=== PATIENT | female | born 1965 | race Two or more races ===

== ENCOUNTER 2024-01-22 07:15 | Inpatient (IN) | payer OTHER ==
[~2024-01-22] VITALS: Ht 175.3 cm; Wt 133.8 kg
[2024-01-22] MEDS ORDERED: SYNTHROID112 MCG (07:46)
[2024-01-22] MEDS ORDERED: LOSARTAN (07:47)
[2024-01-22] MEDS ORDERED: NIFEDIPINE 30 MG (07:48)
[2024-01-22] MEDS ORDERED: ROSUVASTATIN CA10 MG (07:48)
[2024-01-22 08:20] LABS: HEMATOCRIT 39.4 % (36.0-45.00); HEMOGLOBIN 13.4 g/dL (12.0-15.00); MEAN CELL VOLUME 88.4 fL (80.00-100.00); MEAN CORPUSCULAR HEMOGLOBIN 30.1 pg (27.00-32.0); MEAN CORPUSCULAR HGB CONC 34.1 g/dl (32.0-36.0); PLATELET COUNT 314 K/uL (150-450); RED BLOOD COUNT 4.46 M/uL (4.00-6.00); RED CELL DISTRIBUTION WIDTH 13.9 % (11.5-14.5)
[2024-01-22 08:24] LABS: PH,URINE 5.5 (5.0-8.0); URINE APPEARANCE Cloudy; URINE BILIRRUBIN Negative (NEGATIVE); URINE BLOOD Small; URINE COLOR Yellow; URINE GLUCOSE Negative (NEGATIVE); URINE KETONE Trace (NEGATIVE); URINE LEUKOCYTE Trace; URINE NITRATE Negative; URINE PROTEIN Negative (NEGATIVE); URINE UROBILINOGEN 0.2 E.U./dl
[2024-01-22 08:29] LABS: URINE CAST 3.81 uL (0.0-1.40); URINE EPITHELIAL CELLS 197.5 uL (0.0-38.8); URINE RBC 172.2 uL (0.0-20.8)
[2024-01-22 08:37] LABS: PROTHROMBIN TIME 10.9 SECONDS (9.0-11.5)
[2024-01-22 09:06] LABS: URINE BACTERIA > 9821.5 uL (0.0-1933)
[2024-01-22 09:12] LABS: ALBUMIN 4.1 gm/dL (3.4-5.0); BILIRUBIN TOTAL 0.68 mg/dL (0.3-1.2); CALCIUM 9.3 mg/dL (8.5-10.1); CREATININE SERUM 0.8 mg/dL (0.55-1.02); GFR 73.67; GLOBULINA 3.7 G/DL (2.4-3.5); POTASSIUM 3.85 mEq/L (3.5-5.1); TOTAL PROTEIN 7.8 gm/dL (6.4-8.2)
[2024-01-24] MEDS ORDERED: ONDANSETRON HCL 2 MG/ML VIAL IV PRN (11:15)
[2024-01-24] MEDS ORDERED: ENALAPRILAT DIHYDRATE 1.25 MG/ML VIAL IV PRN (11:15)
[2024-01-24] MEDS ORDERED: ACETAMINOPHEN 500 MG GEL..CAP PO SCH (11:17)
[2024-01-24] MEDS ORDERED: CEFAZOLIN SODIUM 1,000 MG VIAL IV ONE (13:15)
[2024-01-24] MEDS ORDERED: DEXAMETHASONE SODIUM PHOSPHATE 4 MG/ML VIAL IV ONE (13:15)
[2024-01-24] MEDS ORDERED: LOSARTAN-HCTZ1 EAC2 (13:33)
[2024-01-24] MEDS ORDERED: LOSARTAN POTAS100 MG (13:33)
[2024-01-24] MEDS ORDERED: FAMOTIDINE40 MG (13:33)
[2024-01-24] MEDS ORDERED: VITAMIN D31250 MCG (13:33)
[2024-01-24] MEDS ORDERED: NIFEDIPINE ER30 M1 (13:33)
[2024-01-24] MEDS ORDERED: TRAMADOL HCL 50 MG TABLET PO SCH (17:00)
[2024-01-24] MEDS ORDERED: CYCLOBENZAPRINE HCL 5 MG TABLET PO SCH (17:00)
[2024-01-24 19:30] VITALS: BP 153/84; O2SAT 95
[2024-01-24] MEDS ORDERED: Calcium Carbonate 1 TAB TABLET PO SCH (21:00)
[2024-01-24] MEDS ORDERED: PANTOPRAZOLE SODIUM 40 MG/VIAL VIAL IV PUSH SCH (21:00)
[2024-01-24 23:35] VITALS: BP 156/75; O2SAT 96
[2024-01-25] MEDS ORDERED: LEVOTHYROXINE SODIUM 175 MCG TABLET PO SCH (06:00)
[2024-01-25 08:24] VITALS: BP 180/80; O2SAT 98
== END 2024-01-25 10:48 | disposition home or self-care (01) | DRG 627 ==
LOC: SURG 01-24 07:15 → O/R 01-24 08:40 → SURG 01-24 12:00 → SURH 01-24 16:09
PROVIDERS: ADMIT Surgery; ATTEND Surgery
PROC: 0GTG0ZZ Resection of Left Thyroid Gland Lobe, Open Approach (ICD-10-PCS; principal; 2024-01-24 12:00)
DX: C73 Malignant neoplasm of thyroid gland (principal); Z20.822 Contact with and (suspected) exposure to COVID-19